=== PATIENT | female | born 2000 | race Caucasian/White ===

== ENCOUNTER 2021-02-14 09:28 | Emergency (ER) | payer BC, SELFPAY ==
[2021-02-14] VITALS (12 sets, daily range): BP systolic 107–127; BP diastolic 63–86; PULSE 62–87; RESP 12–14; TEMP 36.3; O2SAT 97–100
--- NOTE | ~2021-02-14 | CT_ITS ---
EXAMINATION: CT abdomen pelvis w con DATE: 02/14/2021 10:38 INDICATION: Right flank pain. Nausea and vomiting. TECHNIQUE: Computed tomography (CT) of the abdomen and pelvis was performed with 100 mL Omnipaque 350 intravenous contrast. Automated exposure control and iterative reconstruction technique were employe d. The dose-length product was 349.96 mGy-cm. COMPARISON: None. FINDINGS: The visualized portions of the lung bases are clear without pneumonia or pleural effusion. The heart size is normal. No pericardial effusion. The liver, gallbladder, spleen, pancreas, adrenal glands, and left kidney are normal. There is a delayed right-sided contrast nephrogram. There is mild right hydronephrosis and hydroureter. There is a 3 mm stone at right ureterovesicular junction. Ther e are no dilated loops of bowel. The appendix is normal. There are no pathologically enlarged lymph n odes. There is no free intraperitoneal fluid. The bones are unremarkable. IMPRESSION: 1. 3 mm stone at right ureterovesicular junction with mild right hydronephrosis and hydroureter. Reviewed, dictated and finalized at location A. IMPRESSION: 1. 3 mm stone at right ureterovesicular junction with mild right hydronephrosi s and hydroureter.
--- NOTE | ~2021-02-14 | XR_ITS ---
EXAMINATION: XR abdomen/kub 1V DATE: 02/14/2021 11:26 INDICATION: Right ureteral stone. TECHNIQUE: A supine view of the abdomen on 2 radiographs was obtained. COMPARISON: CT abdomen and pelvis 02/14/2021 FINDINGS: There are no dilated loops of bowel. There is contrast in the ureters and bladder. No hydro nephrosis. There is mild right hydroureter. IMPRESSION: 1. Mild right hydroureter. Reviewed, dictated and finalized at location A. IMPRESSION: 1. Mild right hydroureter.
--- NOTE | 2021-02-14 09:41 | ED.ABDPAIN ---
HPI - Abdominal Pain General Chief Complaint: Abdominal Pain Stated Complaint: Abd pain, N/V Time Seen by Provider: 02/14/21 09:40 Source: patient and family Mode of arrival: ambulatory Limitations: no limitations History of Present Illness HPI narrative: Patient is a 20-year-old female with a history of irritable bowel syndrome who presents for evaluation of right-sided abdominal pain. Pain began acutely this morning, described as severe, sharp in nature in the right lower quadrant with radiation to the right flank. No history of nephrolithiasis. No diarrhea. Patient has not had any dysuria or hematuria that she has noticed. No urinary urgency or frequency. Patient is diaphoretic with chills. She is acutely distressed and tearful in the room. No history of abdominal surgeries. Patient does not believe she is . Related Data Allergies Allergy/AdvReac Type Severity Reaction Status Date / Time No Known Allergies Allergy Verified 02/14/21 09:56 Review of Systems Review of Systems: Narrative: CONSTITUTIONAL: Patient reports chills and diaphoresis EYES: Denies visual changes, redness, or discharge. ENT: Denies rhinorrhea, congestion, sore throat, or otalgia. CARDIOVASCULAR: Denies chest pain, palpitations, or edema. RESPIRATORY: Denies cough or dyspnea. GASTROINTESTINAL: Patient reports abdominal pain, nausea GENITOURINARY: Denies dysuria or hematuria. SKIN: Denies rash or itching. MUSCULOSKELETAL: Patient reports right flank pain NEUROLOGIC: Denies headache, numbness, or weakness. [facility] Social History Social History (Updated 02/14/21 @ 09:50 by Liya Kapadia MD) Smoking status: Never smoker Alcohol intake: never Substance use: never Gender identity (if verbalized by the patient): Female Exam Narrative: Exam Narrative: GENERAL: Awake, alert, tearful, diaphoretic HEAD: Normocephalic, atraumatic. EYES: PERRLA and EOMI. ENT: Nares clear, no rhinorrhea or epistaxis. Mucous membranes dry. NECK: Supple. CHEST: No respiratory distress, breathing even and non labored HEART: Regular rate, sinus rhythm ABDOMEN:Non distended, tender in the right lower quadrant, right flank, positive guarding EXTREMITIES: Normal range of motion. No edema. SKIN: Warm, dry, no rash. NEURO:No focal deficits. Alert and oriented x3 Course Vital Signs Vital signs: Vital Signs Temperature 36.3 C L 02/14/21 09:40 Pulse Rate 87 02/14/21 09:40 Respiratory Rate 14 02/14/21 09:40 Blood Pressure 127/85 02/14/21 09:40 Pulse Oximetry 99 02/14/21 09:40 Temperature 36.3 C L 02/14/21 09:40 Pulse Rate 62 02/14/21 11:32 Respiratory Rate 14 02/14/21 11:32 Blood Pressure 107/63 02/14/21 11:32 Pulse Oximetry 100 02/14/21 11:32 MDM - Abdominal Pain MDM Narrative Medical decision making narrative: Patient presenting for evaluation of severe right-sided flank pain and pain. At the time of assessment, ABCs are intact and vital signs are stable. Patient's pain is quite severe on exam. She is tearful, thus was given IV pain medication, antiemetic and IV fluids. Pain was improved at the time of reassessment. Patient without leukocytosis. She is not . No electrolyte derangement or acute kidney injury. No urinary tract infection, there are red blood cells present in the urine most indicative of nephrolithiasis. Patient was CT scan that shows right ureteral vesicular stone, after I spoke with on-call urology Dr. Santos, decision was made to give IV Toradol. Patient was then having adequate analgesia. A renal stone protocol KUB was obtained. Patient will be given follow-up, pain medication, Flomax to take at home. Differential Diagnosis Differential diagnosis: Likely abdominal pain, calculus of kidney, constipation, pancreatitis and small bowel obstruction Lab Data Attestation: I reviewed the patient's lab results. Result diagrams: 02/14/21 09:44 02/14/21 09:44 Labs: Lab Re
[2021-02-14] MEDS: SODIUM CHLORIDE 0.9% IV 1,000 ML 999 ML IV CONT (09:56)
[2021-02-14] MEDS: ONDANSETRON INJ 4 MG/2 ML VIAL IV PUSH (09:56)
[2021-02-14] MEDS: fentaNYL CITRATE INJ (*CRX) 100 MCG/2 ML VIAL 50 MCG IV PUSH (09:56)
[2021-02-14 09:58] LABS: Basophils Percent Auto 0.7 % (0.2-1.2); Eosinophils Absolute Auto 0.2 K/mm3 (0-0.3); Eosinophils Percent Auto 2.9 % (0-4.4); Hematocrit 41.7 % (37.0-47.0); Hemoglobin 13.9 g/dL (12.0-15.0); Immature Granulocyte Absolute 0.02 K/mm3 (0.00-0.031); Immature Granulocyte Percent A 0.4 % (0-0.5); Lymphocytes Absolute Auto 1.82 K/mm3 (0.9-3.2); Lymphocytes Percent Auto 32.6 % (18.3-44.2); Mean Corpuscular HGB Conc 33.3 g/dl (32-36); Mean Corpuscular Hemoglobin 31.2 pg (26-34); Mean Corpuscular Volume 93.7 fl (80-100); Mean Platelet Volume 9.3 fl (7.4-10.4); Monocytes Absolute Auto 0.3 K/mm3 (0.1-0.6); Monocytes Percent Auto 5.2 % (2.6-8.5); Neutrophils Absolute Auto 3.3 K/mm3 (1.3-6.7); Neutrophils Percent Auto 58.2 % (45.5-73.1); Platelet Count Result 283 k/mm3 (150-375); Red Blood Count 4.45 M/mm3 (4.2-5.4); Red Cell Distribution Width 12.2 % (11.5-14.5); White Blood Count 5.6 K/mm3 (4.5-10.0)
[2021-02-14 10:10] LABS: Alanine Aminotransferase 14 U/L (4-35); Alkaline Phosphatase 59 U/L (38-126); Anion Gap 10 mmol/L (8-16); Aspartate Amino Transferase 26 U/L (14-36); Bilirubin,Total 0.4 mg/dL (0.2-1.3); Blood Urea Nitrogen 8 mg/dL (7-17); Calcium 9.8 mg/dL (8.4-10.2); Carbon Dioxide 21 mmol/L (22-30); Chloride 108 mmol/L (98-107); Estimated CRCL calculation 84 ml/min; Estimated Glomerular Filt Rate > 60; Glucose 124 mg/dL (65-105); Lipase 191 U/L (23-300); Potassium 3.8 mmol/L (3.4-5.0); Sodium 139 mmol/L (137-145)
[2021-02-14 10:13] LABS: Add Urine Microscopic? YES; Amorphous Sediment Urine Few; Appearance Urine Cloudy (Clear); Bacteria Urine Trace /hpf; Bilirubin Urine Negative (Negative); Blood Urine 2+ (Negative); Color Urine Yellow (Yellow); Glucose Urine UA Negative (Negative); Ketones Urine Negative (Negative); Leukocyte Esterase Ur Trace LEU/UL (Negative); Mucus Urine Rare /lpf; Nitrate Urine Negative (Negative); Protein Urine Negative (Negative); RBC Urine >75 /hpf (0-2); Specific Grav Ur 1.023 (1.001-1.035); Squamous Epithelial Cell Urine Few /hpf (Few); Transitional Epi Cells Urine Rare /hpf (None Seen); Urobilinogen Urine Negative mg/dL (<2.0)
[2021-02-14] MEDS: MORPHINE SULFATE (*CRX) 4 MG/ML INJ IV PUSH (10:20)
[2021-02-14] MEDS: KETOROLAC 30 MG/ML VIAL (*BKC) IV PUSH (11:32)
== END 2021-02-14 11:47 | disposition home or self-care (01) ==
PROVIDERS: Emergency Provider Emergency Medicine; PCP Family Medicine
DX: N13.2 Hydronephrosis with renal and ureteral calculous obstruction (principal)
CPT/HCPCS: 36415; 74018; 74177; 80053; 81001; 81025; 83690; 85025; 96374; 96375; 99284; J0131; J1885; J2270; J2405; J3010; J7030; Q9967